=== PATIENT | female | born 1960 | race Caucasian/White ===

== ENCOUNTER → 2017-11-29 02:43 | Outpatient (CLI) | payer OTHER, SELFPAY ==
[2017-11-29 11:46] LABS: ALT 29 U/L (12-78); AST 21 U/L (15-37); Albumin 3.6 g/dL (3.4-5.0); Alkaline Phosphatase 107 U/L (46-116); Anion Gap 9.8 mmol/L (3-11); BUN 15 mg/dL (7-18); Bilirubin, Total 0.3 mg/dL (0.2-1.0); CO2 27.2 mmol/L (21.0-32.0); CREATININE 1.16 mg/dL (0.55-1.02); Chloride 100 mmol/L (98-107); Cholesterol 243 mg/dL (50-200); Estimated GFR 47.82 (mL/min/1.73m2); Glucose 95 mg/dL (70-100); HDL Cholesterol 63 mg/dL (40-60); LDL CHOLESTEROL 150 mg/dL (<100); Potassium 4.5 mmol/L (3.5-5.1); Sodium 137 mmol/L (136-145); Total Protein 6.8 g/dL (6.4-8.2); Triglyceride 133 mg/dL (30-150)
[2017-11-29 11:51] LABS: Calcium 9.1 mg/dL (8.5-10.1)
== END ==
DX: E78.2 Mixed hyperlipidemia (principal); F32.9 Major depressive disorder, single episode, unspecified; I10 Essential (primary) hypertension; K21.9 Gastro-esophageal reflux disease without esophagitis; G43.909 Migraine, unspecified, not intractable, without status migrainosus; R11.2 Nausea with vomiting, unspecified
CPT/HCPCS: 36415; 80053; 80061; 83721

== ENCOUNTER 2018-02-02 00:18 | Outpatient (CLI) | payer OTHER, SELFPAY ==
--- NOTE | 2018-02-02 07:50 | DI.MAMMO_ITS ---
SYMPTOM/DIAGNOSIS: SCREENING, Z12.31 MAMMOGRAMS: Mammograms were interpreted according to the usual protocol including computer analysis with CAD system, tomosynthesis and C view imaging. Comparison is made with prior examinations. Breast density, A. No masses or microcalcifications are seen. There is nothing to suggest malignancy. IMPRESSION: Negative mammogram. Routine screening is recommended. Category 1A. MQSA ASSESSMENT OF FINDINGS: Negative. Category 1. Patient will receive a letter notifying them of these results. BI-RAD category A. The breasts are almost entirely fatty.
== END 2018-02-02 00:38 ==
DX: Z12.31 Encounter for screening mammogram for malignant neoplasm of breast (principal)
CPT/HCPCS: 77063; 77067

== ENCOUNTER 2018-03-24 09:49 | Outpatient (CLI) | payer OTHER, SELFPAY ==
[2018-03-24 10:53] LABS: Bilirubin Negative (Negative); Blood Moderate (Negative); Clarity Clear; Glucose Negative (Negative); Ketones Negative (Negative); Leukocyte Esterase Small (Negative); Nitrite Negative (Negative); Specific Gravity 1.015 (1.005-1.025); Urobilinogen 0.2 EU/dL (Up TO 0.2)
[2018-03-24 11:26] LABS: Bacteria Few HPF (Negative); C & S Indicated? Yes; Casts Negative LPF (Negative); Crystals Negative HPF (Negative); Epithelial Cells Rare HPF (Negative); Mucus Negative (Negative); Other Cells Negative (Negative)
== END 2018-03-24 10:09 ==
DX: R31.9 Hematuria, unspecified (principal)
CPT/HCPCS: 87077; 81003; 81015; 87086; 87186

== ENCOUNTER 2018-04-13 01:17 | Outpatient (CLI) | payer OTHER, SELFPAY ==
--- NOTE | 2018-04-13 10:31 | DI.US_ITS ---
SYMPTOMS/DIAGNOSIS: MIXED STRESS AND URGE URINARY INCONTINENCE, N39.46 RENAL ULTRASOUND: The right kidney measures 11.2 x 5.2 x 5.8 cm. Echogenic foci with slight shadowing are noted in the mid pole of the right kidney. There is no evidence of obstruction. The left kidney measures 10.1 x 5.4 x 6.1 cm and appears unremarkable with no evidence of a cyst, stone, mass or hydronephrosis. Bilateral ureteral jets were visualized. The prevoid bladder contains 366 cc's. The postvoid bladder 5.5 cc's. The bladder wall thickness is 4.3 mm with no evidence of a localized bladder wall mass. SUMMARY: There is evidence of nonobstructing right nephrolithiasis. There is slight bladder wall thickening. The study is otherwise unremarkable.
== END 2018-04-13 01:37 ==
PROVIDERS: Visit Provider Urology
DX: N39.46 Mixed incontinence (principal); N20.0 Calculus of kidney; N32.9 Bladder disorder, unspecified
CPT/HCPCS: 76770

== ENCOUNTER 2018-05-10 02:00 | Outpatient (CLI) | payer OTHER, SELFPAY ==
[2018-05-10 07:58] LABS: HCT 39.6 % (36.0-46.0); HGB 13.1 g/dL (12.0-15.5); Mean Corp. HGB Concentration 33.1 g/dL (32.0-36.0); Mean Corpuscular Volume 87.8 fL (80-95); Mean Platelet Volume 9.8 fL (8.0-11.0); Platelet Count 274 x1000/uL (130-400); RBC 4.51 m/cumm (4.00-5.20); White Blood Cell Count 5.66 k/cumm (4.4-10.8)
[2018-05-10 09:51] LABS: Ferritin 42 ng/mL (8-388); TSH (W/Ref FT4) 3.98 uIU/mL (0.358-3.74)
[2018-05-10 10:10] LABS: FREE T4 0.97 ng/dL (0.76-1.46)
== END 2018-05-10 02:20 ==
DX: F32.9 Major depressive disorder, single episode, unspecified (principal); R53.83 Other fatigue; R63.8 Other symptoms and signs concerning food and fluid intake
CPT/HCPCS: 36415; 85027; 82728; 84439; 84443

== ENCOUNTER 2018-12-27 14:15 | Outpatient (REF) | payer OTHER, SELFPAY ==
--- NOTE | 2018-12-27 11:00 | PAPFT_PTH ---
PATIENT: Abbey Saldana LOC: [facility] U#:[id number] AGE/SX: 58/F ROOM: RE12/27/[address]: Fay Mendes APRN : 1960 BED: DIS: 12/27/2018 SPEC #: [id number] RECD: 12/28/18 12:49 STATUS: SHANELL SIMON #: [id number] BRIANNA: 12/27/18 11:[address]: Fay Mendes DEPT: [facility] Cytology RECD BY: Suyapa Ortiz Tissues: 1 - CX/ENDOCX FOR PAP SMEARS Procedures: PAP THIN PREP/UVM Screening HPV DNA PROBE Comments: [id number]
== END 2018-12-27 14:35 ==
LOC: LBN 14:15
DX: Z12.4 Encounter for screening for malignant neoplasm of cervix (principal); Z11.51 Encounter for screening for human papillomavirus (HPV)
CPT/HCPCS: 88142; 87624

== ENCOUNTER 2019-01-04 06:32 | Outpatient (CLI) | payer OTHER, SELFPAY ==
[2019-01-04 09:28] LABS: ALT 29 U/L (14-59); AST 15 U/L (15-37); Albumin 3.9 g/dL (3.4-5.0); Alkaline Phosphatase 114 U/L (46-116); Anion Gap 8.1 mmol/L (3-11); BUN 13 mg/dL (7-18); Bilirubin, Total 0.4 mg/dL (0.2-1.0); CO2 27.9 mmol/L (21.0-32.0); CREATININE 1.01 mg/dL (0.55-1.02); Calcium 9.4 mg/dL (8.5-10.1); Chloride 102 mmol/L (98-107); Estimated GFR 55.91 (mL/min/1.73m2); Glucose 96 mg/dL (70-100); Potassium 4.7 mmol/L (3.5-5.1); Sodium 138 mmol/L (136-145); Total Protein 7.2 g/dL (6.4-8.2)
== END 2019-01-04 06:52 ==
DX: Z00.00 Encounter for general adult medical examination without abnormal findings (principal); I10 Essential (primary) hypertension; K21.9 Gastro-esophageal reflux disease without esophagitis
CPT/HCPCS: 36415; 80053

== ENCOUNTER 2019-12-14 00:44 | Outpatient (CLI) | payer OTHER, SELFPAY ==
--- NOTE | 2019-12-14 06:00 | DI.MAMMO_ITS ---
EXAM: MAMMO SCREENING CLINICAL HISTORY: screening,z12.39 TECHNIQUE: Mammograms were interpreted according to the usual protocol including computer analysis w [employer] CAD system, tomosynthesis and C-view imaging. COMPARISON: 2009 through 2017 FINDINGS: The breasts are composed of scattered fibroglandular densities, Breast Density category B. No suspicious masses or suspicious microcalcifications are seen. No skin thickening or abnormal axillary lymph nodes are seen. There has been no significant change from prior exams. IMPRESSION: BI-RADS Category 1, Negative mammogram Yearly screening mammography is recommended. Breast Density Category B, scattered fibroglandular densities. A negative radiographic report should not delay biopsy if a dominant or clinically suspicious mass is present. Up to ten percent of cancers are not identified on mammography. A negative report may reinforce clinical impression. Adenosis and dense breasts may obscure an underlying neoplasm. False positive reports average 6 to 10%. Patient will receive a letter notifying them of these results.
== END 2019-12-14 01:04 ==
DX: Z12.31 Encounter for screening mammogram for malignant neoplasm of breast (principal); R92.2 Inconclusive mammogram
CPT/HCPCS: 77063; 77067

== ENCOUNTER 2020-02-21 04:05 | Outpatient (CLI) | payer OTHER, SELFPAY ==
[2020-02-21 08:41] LABS: ALT 29 U/L (14-59); AST 21 U/L (15-37); Albumin 3.6 g/dL (3.4-5.0); Alkaline Phosphatase 108 U/L (46-116); Anion Gap 7.8 mmol/L (3-11); BUN 15 mg/dL (7-18); Bilirubin, Total 0.3 mg/dL (0.2-1.0); CO2 26.2 mmol/L (21.0-32.0); CREATININE 1.03 mg/dL (0.55-1.02); Calcium 8.9 mg/dL (8.5-10.1); Chloride 103 mmol/L (98-107); Estimated GFR 54.48 (mL/min/1.73m2); Glucose 89 mg/dL (74-106); Potassium 4.6 mmol/L (3.5-5.1); Sodium 137 mmol/L (136-145); TSH (W/Ref FT4) 3.49 uIU/mL (0.36-3.74); Total Protein 6.8 g/dL (6.4-8.2)
== END 2020-02-21 04:25 ==
DX: E03.9 Hypothyroidism, unspecified (principal); I10 Essential (primary) hypertension; R53.83 Other fatigue
CPT/HCPCS: 36415; 80053; 84443

== ENCOUNTER 2020-06-25 13:39 | Emergency (ER) | payer OTHER, SELFPAY ==
--- NOTE | 2020-06-25 13:47 | W.ED.GENAD ---
Discharge Plan Disposition Patient Disposition: HOME Condition: Stable Discharge Details Clinical Impression: Effusion of left knee, Arthritis of knee, left, Grant's cyst of knee Primary Care Provider: Fay Mendes ED Provider: Karen Mitchell Home Meds and New Rx's Prescriptions: Continued citalopram [Celexa] 40 mg tablet 40 mg PO DAILY Qty: 90 RF: 3 cyclobenzaprine 10 mg tablet 10 mg PO HS Qty: 90 RF: 3 eletriptan [Relpax] 40 mg tablet 40 mg PO BID PRN (Reason: migraine headache) Qty: 30 RF: 1 lisinopril 5 mg tablet 5 mg PO DAILY Qty: 90 RF: 4 lorazepam [Ativan] 0.5 mg tablet 0.5 mg PO HS PRN Qty: 30 RF: 0 pantoprazole 40 mg tablet,delayed release (DR/EC) 40 mg PO DAILY Qty: 90 RF: 4 verapamil 120 mg tablet 120 mg PO BID Qty: 180 RF: 4 fluocinonide-emollient 0.05 % cream 1 applic topical BID Qty: 60 RF: 2 aspirin [Aspirin Low-Strength] 81 MG tablet,chewable 81 mg PO DAILY RF: 0 cholecalciferol (vitamin D3) 1,000 UNIT tablet 2,000 unit PO DAILY RF: 0 Tumeric 1 cap PO DAILY RF: 0 Discharge Instructions Instructions: Knee Sprain (ED), Grant Cyst (ED), Swollen Knee Joint (ED), Arthritis (ED) Additional Instructions: Your pain and swelling may be due to a combination of factors including a possible knee sprain which led to fluid around the knee. An underlying mild arthritis and a Grant's cyst may also be contributing to the pain. It is best to rest, ice, elevate your left knee as much as possible. Alternate Tylenol and Motrin as needed directed for pain. You should take 600 mg of ibuprofen every 6 hours for the next few days to help with swelling and pain. Follow-up with your primary care doctor in 1 week and for referral to orthopedics if your symptoms do not improve or worsen. Return to the emergency department with any worsening or new concerning symptoms. Discharge Data Discharge Date/Time-TO BE ENTERED AT DEPARTURE: 06/25/20 16:37 Discharge Physician: Karen Mitchell Medical Decision Making 59-year-old female with a history of hypertension, GERD, obesity presents with left knee and leg pain and swelling for the past few days after turning quickly at work. She appears nontoxic and afebrile. Her left knee and leg are edematous. She has some pain with range of motion but no ligamentous laxity. No evidence of cellulitis. Neurovascular intact. Differential diagnosis includes sprain versus strain, Grant's cyst, arthritis, versus DVT. Will refer for left knee x-ray and ultrasound and give a dose of ibuprofen. Left knee x-ray noted mild degenerative changes but no acute fracture. Doppler ultrasound noted a 3 x 2 x 1 cm Grant's cyst in addition to a knee joint effusion but no DVT. An Rio wrap was placed to her left knee. Case discussed with Dr. Mccloud -no acute recommendations for Grant's cyst. Patient advised on importance of RICE. Advised to follow up with the primary care doctor for re-evaluation. Usual and customary return precautions given prior to discharge. Medical Records Medical records reviewed: Yes I reviewed the patient's medical records. Imaging Data Radiologic Study: Radiologist's impression: XR KNEE LT 4V AP,LAT,ROSETTE,PAT CLINICAL HISTORY: L knee twisting, r/o effusion, arthritis TECHNIQUE: COMPARISON: CR RIGHT KNEE 3 VIEWS from 11/09/2013 FINDINGS: Four views were obtained. There appear to be mild degenerative changes of the joints of knee. There is no evidence of acute fracture or dislocation. US LOWER EXTREMITY VENOUS LT CLINICAL HISTORY: L leg pain and swelling, r/o dvt. TECHNIQUE: Ultrasound performed using standard protocol. COMPARISON: US US renal from 04/13/2018 FINDINGS: Duplex venous ultrasound was performed according to the usual protocol. The deep veins are freely compressible throughout and there is normal flow augmentation with manual calf compression. 2D and Doppler evaluation are unremarkable. Note is made of a 37 x 25 x 10 millimeter in diameter Grant's cyst in left popliteal fossa. Note is also made of a knee joint effusion. IMPRESSION: No evidence of deep venous thrombosis of the left lower extremity. HPI General Mode of arrival: ambulatory. Date/Time Provider Initiated Documentation: 06/25/20 13:45. Limitations to Documentation: no limitations. Information obtained by: patient. HPI Narrative: Patient is a 59-year-old female with a history of obesity, depression, GERD, osteoarthritis who presents to the ED with a complaint of left leg pain and swelling for the past few days. Patient states she was standing at work when she turned around quickly and felt a tweak and pain in her left posterior knee. She states since then she has had left posterior knee pain and left calf pain. She states the pain is worse with bending her left knee and weightbearing. She last took ibuprofen at 9 AM this morning. She denies any fever, chest pain, shortness of breath, hip pain, ankle pain, pain, recent travel, recent surgeries, estrogen therapy and she is not a smoker. Related Data Home Medications Medication Instructions Recorded Confirmed aspirin [Aspirin Low-Strength] 81 mg PO DAILY tab-cap 10/07/12 06/25/20 cholecalciferol (vitamin D3) 2,000 unit PO DAILY 10/07/12 06/25/20 Tumeric 1 cap PO DAILY 11/12/16 06/25/20 citalopram 40 mg tablet 40 mg PO DAILY #90 tab-cap 02/12/20 06/25/20 cyclobenzaprine 10 mg tablet 10 mg PO HS #90 tab-cap 02/12/20 06/25/20 eletriptan 40 mg tablet 40 mg PO BID PRN #30 tab 02/12/20 06/25/20 fluocinonide-emollient 0.05 % 1 applic TOPICAL BID #60 g 02/12/20 06/25/20 topical cream lisinopril 5 mg tablet 5 mg PO DAILY #90 tab-cap 02/12/20 06/25/20 lorazepam 0.5 mg tablet 0.5 mg PO HS PRN #30 tab-cap 02/12/20 06/25/20 pantoprazole 40 mg tablet,delayed 40 mg PO DAILY #90 tab-cap 02/12/20 06/25/20 release verapamil 120 mg tablet 120 mg PO BID #180 tab-cap 02/12/20 06/25/20 Previous Rx's Medication Instructions Recorded citalopram 40 mg tablet 40 mg PO DAILY #90 tab-cap 02/12/20 cyclobenzaprine 10 mg tablet 10 mg PO HS #90 tab-cap 02/12/20 eletriptan 40 mg tablet 40 mg PO BID PRN #30 tab 02/12/20 fluocinonide-emollient 0.05 % 1 applic TOPICAL BID #60 g 02/12/20 topical cream lisinopril 5 mg tablet 5 mg PO DAILY #90 tab-cap 02/12/20 lorazepam 0.5 mg tablet 0.5 mg PO HS PRN #30 tab-cap 02/12/20 pantoprazole 40 mg tablet,delayed 40 mg PO DAILY #90 tab-cap 02/12/20 release verapamil 120 mg tablet 120 mg PO BID #180 tab-cap 02/12/20 Allergies Allergy/AdvReac Type Severity Reaction Status Date / Time hydrocodone AdvReac Severe GI UPSET Verified 06/25/20 13:52 hydromorphone HCl AdvReac Severe GI UPSET Verified 06/25/20 13:52 [From Dilaudid] erythromycin base AdvReac Intermediate GI UPSET Verified 06/25/20 13:52 hydroxychloroquine AdvReac Intermediate Verified 06/25/20 13:52 [From Plaquenil] morphine AdvReac Mild N/V Verified 06/25/20 13:52 Review of Systems All systems reviewed & are unremarkable except as noted in HPI and below Constitutional Constitutional: Reports as per HPI, Denies chills and Denies fever(s) Eyes Eyes: Denies blurry vision ENT Ears, Nose, Mouth, and Throat: Denies dizziness, Denies sore throat and Denies throat swelling Cardiovascular Cardiovascular: Denies chest pain and Denies dyspnea Respiratory Respiratory: Denies cough and Denies dyspnea Gastrointestinal Gastrointestinal: Denies abdominal pain, Denies diarrhea and Denies vomiting Genitourinary Genitourinary: Denies hematuria and Denies dysuria Musculoskeletal Musculoskeletal: Denies back pain, Denies numbness and Reports other (left leg pain) Integumentary/Breasts Skin/Breast: Denies lesions and Denies rash Neurologic Neurologic: Denies dizziness, Denies localized weakness and Denies numbness Allergic/Immunologic Allergic/Immunologic: Denies throat swelling [facility] Medical History (Updated 06/25/20 @ 16:15 by Karen Mitchell DO) Depressive disorder Diverticulosis of intestine without bleeding (03/03/17) 02/19/17 Colonoscopy mild-mod guevara diverticulosis Encounter for annual physical exam Essential hypertension Fatigue Foot pain, right Generalized osteoarthrosis (06/12/11) 07/04 right TKR GERD (gastroesophageal reflux disease) (04/06/14) Granuloma annulare Grief Increased body mass index (BMI) (11/29/17) Joint pain (06/12/11) [address] 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 Migraine Rotator cuff syndrome (05/02/10) 04/04 (Angelique) surgery left shoulder Urinary incontinence, mixed [facility]04/06/14[facility] [place] [place] and collagen x 2 Varicose veins of lower extremity 05/06 left superficial phlebitis Surgical History Colonoscopy - MAC (02/19/17) Replacement of total knee joint (07/01/10) RIGHT KNEE Rotator Cuff Repair (04/21/10) ROTATOR CUFF AND BICEP TEAR Family History Mother Diabetes Essential hypertension Hyperlipidemia Emphysema lung Father Essential hypertension Heart disease Neoplasm PROSTATE Sister Alcohol abuse RECOVERING Brother Essential hypertension Hyperlipidemia Grandfather Depression Neoplasm BONE CA Grandfather COPD (chronic obstructive pulmonary disease) Emphysema lung Asthma Grandmother Diabetes Depression Heart disease Grandmother Neoplasm STOMACH Son Essential hypertension Hyperlipidemia Asthma Daughter Essential hypertension Hyperlipidemia Family History Lupus Scleredema Raynauds disease Social History Smoking/Tobacco Use Status: Never Smoking risk assessment performed?: Yes Alcohol Intake: never Drug use: Never Substance use type: does not use Do you feel safe at home: Yes Do you feel safe in your relationship?: Yes Exam Const General: cooperative, healthy appearing and no acute distress HENMT Head: normal to inspection Mouth: oral mucosae normal Eyes General: appearance normal, both eyes and all related structures Neck Neck: normal visual inspection Resp Effort & Inspection: normal respiratory effort and able to speak in complete sentences Cardio Rate: regular rate Skin General skin exam: no rashes or lesions noted Neuro General: patient alert, patient awake and patient oriented x3 Motor: muscle tone normal throughout Extrem Other: Pain in left knee with full flexion. Tenderness palpation to left posterior knee. There is nonpitting edema to the left lower leg extending from the knee down. She has bulging varicose veins noted to left medial proximal leg. Left DP/PT pulses intact. Left hip normal to inspection. Left ankle and foot normal to inspection. No left calf tenderness. No ligamentous laxity. Negative anterior posterior drawer test. No pain with valgus or varus stress. Psych Appearance: grossly normal Affect: normal affect
[2020-06-25 13:48] VITALS: BP 184/94; PULSE 97; RESP 16; TEMP 36.1; O2SAT 100
--- NOTE | 2020-06-25 14:00 | DI.RAD_ITS ---
EXAM: XR KNEE LT 4V AP,LAT,ROSETTE,PAT CLINICAL HISTORY: L knee twisting, r/o effusion, arthritis TECHNIQUE: COMPARISON: CR RIGHT KNEE 3 VIEWS from 11/09/2013 FINDINGS: Four views were obtained. There appear to be mild degenerative changes of the joints of knee. There is no evidence of acute fracture or dislocation. IMPRESSION: RADIATION DOSE DELIVERED: Total DLP
--- NOTE | 2020-06-25 14:00 | DI.US_ITS ---
EXAM: US LOWER EXTREMITY VENOUS LT CLINICAL HISTORY: L leg pain and swelling, r/o dvt. TECHNIQUE: Ultrasound performed using standard protocol. COMPARISON: US US renal from 04/13/2018 FINDINGS: Duplex venous ultrasound was performed according to the usual protocol. The deep veins are freely com pressible throughout and there is normal flow augmentation with manual calf compression. 2D and Doppl er evaluation are unremarkable. Note is made of a 37 x 25 x 10 millimeter in diameter Grant's cyst in left popliteal fossa. Note is also made of a knee joint effusion. IMPRESSION: No evidence of deep venous thrombosis of the left lower extremity. DATA REPOSITORY:
[2020-06-25] MEDS: Ibuprofen 600 MG TAB PO (14:15)
[2020-06-25 16:24] VITALS: BP 127/75; PULSE 85; RESP 16; O2SAT 95
== END 2020-06-25 16:37 | disposition home or self-care (01) ==
PROVIDERS: Emergency Provider Physician Assistant
DX: M25.462 Effusion, left knee (principal); M71.22 Synovial cyst of popliteal space [Baker], left knee; M17.12 Unilateral primary osteoarthritis, left knee
CPT/HCPCS: 99284; 73564; 93971; 99285

== ENCOUNTER 2020-07-03 11:22 | Emergency (ER) | payer OTHER, SELFPAY ==
[2020-07-03 11:43] VITALS: BP 149/89; PULSE 83; RESP 16; TEMP 36.3; O2SAT 99
--- NOTE | 2020-07-03 11:55 | W.ED.GENAD ---
Discharge Plan Disposition Patient Disposition: HOME Condition: Stable Discharge Details Clinical Impression: Knee pain Primary Care Provider: Fay Mendes ED Provider: Antione Chen Home Meds and New Rx's Prescriptions: Continued citalopram [Celexa] 40 mg tablet 40 mg PO DAILY Qty: 90 RF: 3 cyclobenzaprine 10 mg tablet 10 mg PO HS Qty: 90 RF: 3 eletriptan [Relpax] 40 mg tablet 40 mg PO BID PRN (Reason: migraine headache) Qty: 30 RF: 1 lisinopril 5 mg tablet 5 mg PO DAILY Qty: 90 RF: 4 lorazepam [Ativan] 0.5 mg tablet 0.5 mg PO HS PRN Qty: 30 RF: 0 pantoprazole 40 mg tablet,delayed release (DR/EC) 40 mg PO DAILY Qty: 90 RF: 4 verapamil 120 mg tablet 120 mg PO BID Qty: 180 RF: 4 fluocinonide-emollient 0.05 % cream 1 applic topical BID Qty: 60 RF: 2 aspirin [Aspirin Low-Strength] 81 MG tablet,chewable 81 mg PO DAILY RF: 0 cholecalciferol (vitamin D3) 1,000 UNIT tablet 2,000 unit PO DAILY RF: 0 Tumeric 1 cap PO DAILY RF: 0 ibuprofen 800 mg Tablet 800 mg PO PRN PRNRF: 0 Discharge Instructions Instructions: Knee Pain (ED) Additional Instructions: Your Grant's cyst very well could have ruptured. As we discussed, no clear indication for emergent x-ray or ultrasound as you have been both within the last week. Rio wrap as tolerated. Rest, elevate, cool and/or warm compresses every 2 hours for 20 minutes. Gentle stretching as tolerated. [id number] Tylenol and/or Motrin as directed for discomfort. Please watch for new or worsening symptoms and return to the ER for any concerns. Lastly, please follow-up with your primary care provider as already scheduled on Wednesday. If symptoms are to persist an outpatient referral to orthopedics may be indicated Medical Decision Making 59-year-old female who was seen on 06-25 for left knee pain, diagnosed with arthritis, effusion, Grant's cyst, now presents with increasing left posterior knee discomfort after taking a step today and feeling a pop. Clinically she appears well, nontoxic. There was no twisting mechanism or fall. I do not believe that repeat x-ray is indicated. Negative Homans' sign, ultrasound revealed Grant's cyst but negative for DVT just 8 days ago. I do not see any indication to repeat ultrasound. No suspicion for acute DVT. Patient did very well may have had her Grant's cyst rupture. She has a follow-up with her primary care provider on Wednesday. We discussed my thought process and plan. Patient is comfortable not repeating x-ray or ultrasound at this time. She declines any assisted devices for ambulation. Will provide Rio wrap to her knee. Encouraged her resting, elevating, cool and/or warm compresses [id number] Tylenol and/or Motrin as directed for discomfort. She will return to the ER for new or worsening symptoms, otherwise follow-up with her primary care provider on Wednesday as already scheduled. We discussed that if she is not improving with conservative care then potential outpatient orthopedic referral may be indicated. Medical Records Medical records reviewed: Yes I reviewed the patient's medical records. HPI General Mode of arrival: ambulatory. Date/Time Provider Initiated Documentation: 07/03/20 11:43. Limitations to Documentation: no limitations. Information obtained by: patient. HPI Narrative: This is a 59-year-old female with past medical history of granuloma annulare, depression, hypertension, GERD, varicose veins of bilateral lower extremities, migraines, who was seen in the ER on 06-25-20 for left knee pain. X-ray and ultrasound obtained, patient diagnosed with knee effusion, arthritis, and a Grant's cyst. She states today just prior to arrival while walking on an indoor even flat surface at work felt a pop and felt 7 out of 10 pain to the back of her left knee. She denies any twisting or falling mechanism. Denies numbness, tingling, weakness. States at rest her pain is 0 out of 10, with ambulation it is moderate in nature. She is scheduled to be seen by her primary care provider on Wednesday. Related Data Home Medications Medication Instructions Recorded Confirmed aspirin [Aspirin Low-Strength] 81 mg PO DAILY tab-cap 10/07/12 07/03/20 cholecalciferol (vitamin D3) 2,000 unit PO DAILY 10/07/12 07/03/20 Tumeric 1 cap PO DAILY 11/12/16 07/03/20 citalopram 40 mg tablet 40 mg PO DAILY #90 tab-cap 02/12/20 07/03/20 cyclobenzaprine 10 mg tablet 10 mg PO HS #90 tab-cap 02/12/20 07/03/20 eletriptan 40 mg tablet 40 mg PO BID PRN #30 tab 02/12/20 07/03/20 fluocinonide-emollient 0.05 % 1 applic TOPICAL BID #60 g 02/12/20 07/03/20 topical cream lisinopril 5 mg tablet 5 mg PO DAILY #90 tab-cap 02/12/20 07/03/20 lorazepam 0.5 mg tablet 0.5 mg PO HS PRN #30 tab-cap 02/12/20 07/03/20 pantoprazole 40 mg tablet,delayed 40 mg PO DAILY #90 tab-cap 02/12/20 07/03/20 release verapamil 120 mg tablet 120 mg PO BID #180 tab-cap 02/12/20 07/03/20 ibuprofen 800 mg PO PRN PRN 07/03/20 07/03/20 Previous Rx's Medication Instructions Recorded citalopram 40 mg tablet 40 mg PO DAILY #90 tab-cap 02/12/20 cyclobenzaprine 10 mg tablet 10 mg PO HS #90 tab-cap 02/12/20 eletriptan 40 mg tablet 40 mg PO BID PRN #30 tab 02/12/20 fluocinonide-emollient 0.05 % 1 applic TOPICAL BID #60 g 02/12/20 topical cream lisinopril 5 mg tablet 5 mg PO DAILY #90 tab-cap 02/12/20 lorazepam 0.5 mg tablet 0.5 mg PO HS PRN #30 tab-cap 02/12/20 pantoprazole 40 mg tablet,delayed 40 mg PO DAILY #90 tab-cap 02/12/20 release verapamil 120 mg tablet 120 mg PO BID #180 tab-cap 02/12/20 Allergies Allergy/AdvReac Type Severity Reaction Status Date / Time hydrocodone AdvReac Severe GI UPSET Verified 07/03/20 11:47 hydromorphone HCl AdvReac Severe GI UPSET Verified 07/03/20 11:47 [From Dilaudid] erythromycin base AdvReac Intermediate GI UPSET Verified 07/03/20 11:47 hydroxychloroquine AdvReac Intermediate Verified 07/03/20 11:47 [From Plaquenil] morphine AdvReac Mild N/V Verified 07/03/20 11:47 General Stated Complaint: Orthopedic JIMMIE: 4 Review of Systems Constitutional Constitutional: Denies fever(s) and Denies weakness Cardiovascular Cardiovascular: Denies chest pain and Denies dyspnea Respiratory Respiratory: Denies dyspnea Musculoskeletal Musculoskeletal: Reports arthralgias, Denies numbness, Denies stiffness and Denies tingling Integumentary/Breasts Skin/Breast: Denies erythema Neurologic Neurologic: Denies numbness, Denies tingling and Denies weakness [facility] Medical History Depressive disorder Diverticulosis of intestine without bleeding (03/03/17) 02/19/17 Colonoscopy mild-mod guevara diverticulosis Encounter for annual physical exam Essential hypertension Fatigue Foot pain, right Generalized osteoarthrosis (06/12/11) 07/04 right TKR GERD (gastroesophageal reflux disease) (04/06/14) Granuloma annulare Grief Increased body mass index (BMI) (11/29/17) Joint pain (06/12/11) [address] 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 Migraine Rotator cuff syndrome (05/02/10) 04/04 (Angelique) surgery left shoulder Urinary incontinence, mixed (04/06/14) [facility] urodynamics and collagen x 2 Varicose veins of lower extremity 05/06 left superficial phlebitis Surgical History Colonoscopy - MAC (02/19/17) Replacement of total knee joint (07/01/10) RIGHT KNEE Rotator Cuff Repair (04/21/10) ROTATOR CUFF AND BICEP TEAR Family History Mother Diabetes Essential hypertension Hyperlipidemia Emphysema lung Father Essential hypertension Heart disease Neoplasm PROSTATE Sister Alcohol abuse RECOVERING Brother Essential hypertension Hyperlipidemia Grandfather Depression Neoplasm BONE CA Grandfather COPD (chronic obstructive pulmonary disease) Emphysema lung Asthma Grandmother Diabetes Depression Heart disease Grandmother Neoplasm STOMACH Son Essential hypertension Hyperlipidemia Asthma Daughter Essential hypertension Hyperlipidemia Family History Lupus Scleredema Raynauds disease Social History Smoking/Tobacco Use Status: Never Smoking risk assessment performed?: Yes Alcohol Intake: never Drug use: Never Substance use type: does not use Do you feel safe at home: Yes Do you feel safe in your relationship?: Yes Exam Const General: cooperative, healthy appearing, comfortable and no acute distress Orientation: alert and awake [facility] Head: normal to inspection, normocephalic and atraumatic Eyes General: appearance normal, both eyes and all related structures Conjunctivae: conjunctivae normal Sclera: sclerae normal Neck Neck: normal visual inspection, trachea midline and supple Resp Effort & Inspection: normal respiratory effort and able to speak in complete sentences Cardio Rate: regular rate Rhythm: regular rhythm Skin General skin exam: no rashes or lesions noted Neuro General: patient alert, patient awake, moves all extremities and no focal motor deficits Cognition: normal cognition Speech: speech normal Gait: antalgic Motor: muscle tone normal throughout Sensory Exam: no sensory deficits noted Extrem Other: Left knee with full range of motion. No obvious swelling, erythema, ecchymosis, warmth. There is diffuse mild posterior discomfort. Neuro, vascular, tendon intact. Patient has varicose veins present throughout her lower extremity as well as skin changes consistent with granuloma annulare. No deformity or signs of septic joint. No signs of cellulitis. Negative Homans' sign. Knee is stable, no discomfort with varus or valgus stress. Anterior drawer test unremarkable Psych Appearance: grossly normal Mental Status: mental status grossly normal Course Vital Signs Vital signs: Vital Signs Temperature 36.3 C L 07/03/20 11:43 Pulse 83 07/03/20 11:43 Respiratory Rate 16 07/03/20 11:43 Blood Pressure 149/89 H 07/03/20 11:43 Pulse Oximetry 99 07/03/20 11:43 Temperature 36.3 C L 07/03/20 11:43 Temperature Source Tympanic 07/03/20 11:43 Pulse 83 07/03/20 11:43 Respiratory Rate 16 07/03/20 11:43 Blood Pressure 149/89 H 07/03/20 11:43 Pulse Oximetry 99 07/03/20 11:43 Oxygen Delivery Method Room Air 07/03/20 11:43 Oxygen Flow Rate 0 07/03/20 11:43 Pain Level 7 07/03/20 11:43
== END 2020-07-03 13:29 | disposition home or self-care (01) ==
PROVIDERS: Emergency Provider Physician Assistant
DX: M25.562 Pain in left knee (principal)
CPT/HCPCS: 99282; 99283

== ENCOUNTER 2020-12-16 01:40 | Outpatient (CLI) | payer OTHER, SELFPAY ==
--- NOTE | 2020-12-16 07:00 | DI.MAMMO_ITS ---
Exam(s) MAMMO SCREENING EXAM: MAMMO SCREENING CLINICAL HISTORY: screening, Z12.39. TECHNIQUE: Bilateral full field digital CC and MLO mammographic images were obtained with 3D tomosyn thesis and utilizing computer aided detection (CAD). COMPARISON: Prior mammograms dating back to 2011, the most recent being November 2019. FINDINGS: Asymmetric density in the retroareolar region of the left breast exhibits a CAD designation but is un changed from prior mammograms, identical in appearance to the mammogram of January 2017.. There are no new spiculated masses nor malignant appearing microcalcification groups. There is no significant architectural distortion nor skin thickening-retraction. IMPRESSION: Benign findings. No radiographic evidence of malignancy. BI-RADS Category 2 - Benign Findings Breast Density - Category B - Scattered areas of fibroglandular density Breast density Category C or D implies that the patient has dense breast tissue. Dense breast tissue can make it harder to find cancer on a mammogram. Dense breast tissue is also associated with an incr eased risk of breast cancer. This information about the result of the mammogram report was provided to the patient to raise their awareness. Use this report when you speak with the patient about their risks for breast cancer, which includes their family history. At that time, you may recommend additional screening tests (Ultrasoun d or MRI) as these tests may add significant information. A negative radiographic report should not delay biopsy if a dominant or clinically suspicious mass is present. Up to ten percent of cancers are not identified on mammography. A negative report may reinforce clinical impression. Adenosis and dense breasts may obscure an underlying neoplasm. False positive reports average 6 to 10%. Patient will receive a letter notifying them of these results.
== END 2020-12-16 02:00 ==
DX: Z12.31 Encounter for screening mammogram for malignant neoplasm of breast (principal)
CPT/HCPCS: 77063; 77067

== ENCOUNTER 2021-02-13 12:28 | Outpatient (REF) | payer OTHER, SELFPAY ==
--- NOTE | 2021-02-13 09:30 | PAPFT_PTH ---
PATIENT: Abbey Saldana LOC: [facility] U#:[id number] AGE/SX: 60/F ROOM: RE02/13/[address]: Fay Mendes APRN : 1960 BED: DIS: 02/13/2021 SPEC #: [id number] RECD: 02/13/21 12:58 STATUS: SHANELL REElissa #: [id number] BRIANNA: 02/13/21 09:[address]: Deandra Cedeño DEPT: [facility] Cytology RECD BY: Suyapa Ortiz ENTERED: 02/13/21 13:02 SP TYPE: PAPFT OTHR DR: Fay Mendes APRN Tissues: 1 - CX/ENDOCX FOR PAP SMEARS Procedures: PAP THIN PREP/UVM Screening HPV DNA PROBE Comments: [id number]
== END 2021-02-13 12:29 | disposition home or self-care (01) ==
LOC: LBN 12:28
DX: Z12.4 Encounter for screening for malignant neoplasm of cervix (principal); Z11.51 Encounter for screening for human papillomavirus (HPV)
CPT/HCPCS: 88142; 87624

== ENCOUNTER 2021-02-26 03:31 | Outpatient (CLI) | payer OTHER, SELFPAY ==
[2021-02-26 08:32] LABS: ALT 28 U/L (14-59); AST 20 U/L (15-37); Albumin 3.8 g/dL (3.4-5.0); Alkaline Phosphatase 101 U/L (46-116); Anion Gap 10.7 mmol/L (3-11); BUN 15 mg/dL (7-18); Bilirubin, Total 0.4 mg/dL (0.2-1.0); CO2 27.3 mmol/L (21.0-32.0); Calcium 9.3 mg/dL (8.5-10.1); Calculated LDL 175 mg/dL (<100); Chloride 101 mmol/L (98-107); Cholesterol 260 mg/dL (<200); Estimated GFR 56.18 (mL/min/1.73m2); Glucose 96 mg/dL (74-106); HDL Cholesterol 60 mg/dL (40-60); Potassium 4.5 mmol/L (3.5-5.1); Sodium 139 mmol/L (136-145); Triglyceride 126 mg/dL (<150)
== END 2021-02-26 03:32 | disposition home or self-care (01) ==
LOC: LBO 03:31
DX: E78.5 Hyperlipidemia, unspecified (principal); Z00.00 Encounter for general adult medical examination without abnormal findings
CPT/HCPCS: 36415; 80053; 80061

== ENCOUNTER → 2021-03-13 10:05 | Outpatient (CLI) | payer OTHER, SELFPAY ==
--- NOTE | 2021-03-13 09:57 | DI.RAD_ITS ---
Exam(s) XR PELVIS AP EXAM: XR PELVIS AP CLINICAL HISTORY: post fall pain, not improving - right post. pelvis,r10.2. TECHNIQUE: 2D digital imaging was performed. COMPARISON: CT RENAL COLIC WO CONTRAST from 01/11/2017 CT RENAL COLIC WO CONTRAST from 01/11/2017 CT UPPER ABD WITH CONTRAST (P) from 01/20/2017 FINDINGS: There is no evidence of pelvic nor hip fracture. There are minimal degenerative changes in the hips. Sacroiliac joints appear unremarkable. Some disc space narrowing in the lumbar spine noted. Phleb oliths are noted in both sides of the pelvis. There is a calcific density in the lower pelvis measuring 2.7 by 1.4 cm in the midline at the level s ymphysis pubis, not previously present. This may be a calculus in the urinary bladder. Other possib ility would be calcified uterine fibroid, not previously present. IMPRESSION: No new significant osseous findings. 27 x 14 millimeter midline calcification now evident, either related to uterine fibroid or bladder ca lculus. This was not evident on CT scan of the 01/11/2017 DATA REPOSITORY: RADIATION DOSE DELIVERED:
== END ==
DX: R10.2 Pelvic and perineal pain (principal); R93.5 Abnormal findings on diagnostic imaging of other abdominal regions, including retroperitoneum
CPT/HCPCS: 72170

== ENCOUNTER 2021-07-25 15:11 | Outpatient (REF) | payer OTHER, SELFPAY ==
[2021-07-25 15:08] LABS: Bilirubin Negative (Negative); Blood Large (Negative); Clarity Sl Cloudy (Clear); Glucose Negative (Negative); Ketones Negative (Negative); Leukocyte Esterase Large (Negative); Nitrite Negative (Negative); Urobilinogen 0.2 EU/dL (Up TO 0.2)
[2021-07-25 15:16] LABS: Bacteria Few HPF (Negative); C & S Indicated? Yes; Casts 0-2 Hyaline LPF (Negative); Crystals Negative HPF (Negative); Epithelial Cells Few HPF (Negative); Mucus Trace (Negative); RBC >50 HPF (0-2); WBC >50 HPF (0-5)
== END 2021-07-25 15:12 | disposition home or self-care (01) ==
LOC: LBN 15:11
PROVIDERS: Visit Provider Family Medicine
DX: N39.0 Urinary tract infection, site not specified (principal)
CPT/HCPCS: 81003; 81015; 87086

== ENCOUNTER 2021-08-02 16:26 | Outpatient (REF) | payer OTHER, SELFPAY | END 2021-08-02 16:27 | disposition home or self-care (01) | LOC: LBN 16:26 | PROVIDERS: Visit Provider Nurse Practitioner Family | DX: R30.0 Dysuria (principal) | CPT/HCPCS: 87086 ==

== ENCOUNTER 2021-08-19 04:26 | Outpatient (CLI) | payer OTHER, SELFPAY ==
--- NOTE | 2021-08-19 07:15 | DI.CT_ITS ---
Exam(s) CT ABDOMEN PELVIS WO/W EXAM: CT ABDOMEN PELVIS WO/W CLINICAL HISTORY: heamturia,f/u nodule kidney,f/u abnl us,n28.89,r31.9 TECHNIQUE: Imaging Protocol: Axial computed tomography images with coronal and sagittal reformatted images were created and reviewed CONTRAST MATERIAL: Intravenous: Omnipaque 350 Contrast volume:100 mL Oral: No COMPARISON: CT RENAL COLIC WO CONTRAST from 01/11/2017 CT UPPER ABD WITH CONTRAST (P) from 01/20/2017 CR XR PELVIS AP from 03/13/2021 US US ABDOMEN from 08/12/2021 FINDINGS: ABDOMEN: Lung Bases: Normal where visualized. Liver: Normal density. There is again seen a 2.8 x 1.6 cm hemangioma in the inferior aspect of the ri ght lobe of the liver. No suspicious hepatic masses are present. Portal, Superior Mesenteric, and Splenic Veins: Unremarkable. Gallbladder and Biliary Tract: No radiodense calculus or dilation. Pancreas: Normal density, no abnormal calcifications or inflammatory process. Spleen: Normal. Adrenals: No masses seen. Kidneys: Normal size, contour and axis. There is a 2 mm stone in the upper pole of the right kidney. No hydronephrosis. No masses seen. Abdominal Aorta: Abdominal portion non-dilated. Atherosclerosis. Bowel: No obstruction or bowel wall thickening. Appendix is unremarkable. There is diverticulosis thr oughout the colon, but no evidence of acute diverticulitis. Peritoneal Cavity: No ascites, collection or mesenteric inflammatory response. No free air. Lymph Nodes: Within normal limits. Bones: Within normal limits for the patient's age. Soft Tissues: Unremarkable. PELVIS: Bladder: Symmetric distention, no gross wall thickening. Reproductive Organs: Unremarkable as visualized. There is again seen a coarse calcification measuring 1.4 AP by 1.9 transverse by 3.1 craniocaudad interposed between the uterus and the urinary bladder. This was present on the x-ray of the pelvis from 03/13/2021. Lymph Nodes: Within normal limits. Bones: Within normal limits for the patient's age. IMPRESSION: 1. There is no evidence of a renal mass. The questionable area on the right kidney seen on the ultra sound dated 08/12/2021 represents normal renal cortical tissue. 2. Right nephrolithiasis. No hydronephrosis. RADIATION DOSE DELIVERED: 2,651.09mGy.cm Total DLP 2,651.09mGy.cm Total DLP DATA REPOSITORY: All CT scans at this facility are submitted to the National Radiology Data Registry (NRDR) Dose Index Registry (DIR) with the [employer] ([employer]). RADIATION OPTIMIZATION: All CT scans at this facility use at least one of these dose optimization te chniques: automated exposure control; mA and/or kV adjustment per patient size (includes targeted exa ms where dose is matched to clinical indication); or iterative reconstruction.
[2021-08-19 10:33] LABS: CREATININE 0.9 mg/dL (0.55-1.02)
[2021-08-19] MEDS: Omnipaque 350 MG/ML 100 ML BTL IJ (11:24)
== END 2021-08-19 04:46 ==
LOC: DI 04:26
DX: N28.89 Other specified disorders of kidney and ureter (principal); R31.9 Hematuria, unspecified; K76.89 Other specified diseases of liver; N20.0 Calculus of kidney
CPT/HCPCS: 74178; 82565; J3490

== ENCOUNTER 2021-11-11 17:11 | Emergency (ER) | payer MEDICAID, SELFPAY ==
--- NOTE | 2021-11-11 17:15 | RT.EKG_ITS ---
APPROVED REPORT Exam: Resting ECG Reason for Exam: fainting spells Patient Location: E HR:77 bpm ECG Measurements Heart Rate 77 AXIS MN 146 P 49 QRSd 87 QRS 26 QT 371 T 19 QTc 420 Conclusion Sinus rhythm...normal P axis, V-rate 60- 99 Probable left atrial enlargement...P >50mS, <-0.10mV V1. Sinus. Normal axis. No STEMI. I have reviewed and interpreted ECG and agree with software generated interpretation.
[2021-11-11 17:21] VITALS: BP 131/86; PULSE 81; RESP 18; TEMP 36.7; O2SAT 97
[2021-11-11] MEDS: Normal Saline 1,000 ML 1000 ML IV (17:53)
[2021-11-11 18:10] LABS: Abs Immature Grans 0.02 10^3/uL (0.0-0.06); Absolute Basophil Count 0.05 10^3/uL (0.0-0.2); Absolute Lymphocyte Count 1.97 10^3/uL (1.2-3.4); Absolute Monocyte Count 0.43 10^3/uL (0.1-0.8); Absolute Neutrophil Count 4.12 10^3/uL (1.2-6.7); Basophils % 0.7; Eosinophils % 1.5; HCT 39.2 % (36.0-46.0); HGB 12.5 g/dL (11.2-15.7); Immature Grans % 0.3; Lymphocytes % 29.4; MCHC 31.9 % (32.0-36.0); MCV 91 fL (80-95); MPV 10.6 fL (8.0-11.0); Monocytes % 6.4; Neutrophils % 61.7; Platelet Count 301 10^3/uL (130-400); RBC 4.31 10^6/uL (3.93-5.22); RDW 14.3 % (11.7-14.6); RDW-SD 47.6 fL; WBC 6.69 10^3/uL (4.4-10.8)
[2021-11-11 18:16] LABS: Bilirubin Negative (Negative); Blood Trace-intact (Negative); Clarity Clear (Clear); Glucose Negative (Negative); Ketones Negative (Negative); Leukocyte Esterase Negative (Negative); Nitrite Negative (Negative); Specific Gravity 1.015 (1.005-1.025); Urobilinogen 0.2 EU/dL (Up TO 0.2)
[2021-11-11 18:31] LABS: Bacteria Negative HPF (Negative); C & S Indicated? No; Crystals Negative HPF (Negative); Epithelial Cells Few HPF (Negative); Mucus Negative (Negative); RBC 0-2 HPF (0-2); WBC 0-2 HPF (0-5)
[2021-11-11 18:35] LABS: ALT 32 U/L (14-59); AST 26 U/L (15-37); Alkaline Phosphatase 123 U/L (46-116); Anion Gap 8.5 mmol/L (3-11); BUN 29 mg/dL (7-18); Bilirubin, Total 0.3 mg/dL (0.2-1.0); CO2 28.5 mmol/L (21.0-32.0); Calcium 9.3 mg/dL (8.5-10.1); Chloride 98 mmol/L (98-107); Glucose 90 mg/dL (74-106); Magnesium 2.2 mg/dL (1.8-2.4); Potassium 3.9 mmol/L (3.5-5.1); Sodium 135 mmol/L (136-145); TSH 3.21 uIU/mL (0.36-3.74); Total Protein 7.3 g/dL (6.4-8.2); Troponin I < 50 ng/L (<or=60)
[2021-11-11] MEDS: Ketorolac 15 MG/ML VIAL IVP (19:29)
--- NOTE | 2021-11-11 19:32 | W.ED.GENAD ---
Discharge Plan Disposition Patient Disposition: HOME Condition: Improving Discharge Details Clinical Impression: Syncope, Adverse drug effect Primary Care Provider: Fay Mendes ED Provider: Martinez Pisano Home Meds and New Rx's Prescriptions: Continued eletriptan [Relpax] 40 mg tablet 40 mg PO BID PRN (Reason: migraine headache) Qty: 30 1RF Rx Instructions: 1 TAB for migraine headache, may repeat x1 after 2 hours for a max. of twice in 24 hours. coenzyme Q10 [Co Q-10] 50 mg capsule 50 mg PO DAILY aspirin [Aspirin Low-Strength] 81 MG tablet,chewable 81 mg PO DAILY cholecalciferol (vitamin D3) 1,000 UNIT tablet 2,000 unit PO DAILY Tumeric 1 cap PO DAILY lorazepam [Ativan] 0.5 mg tablet 0.5 mg PO HS PRN Qty: 30 0RF Rx Instructions: 1 TAB QHS PRN atorvastatin 10 mg tablet 10 mg PO QPM Qty: 90 3RF citalopram [Celexa] 40 mg tablet 40 mg PO DAILY Qty: 90 3RF Rx Instructions: 40 MG DAILY lisinopril 5 mg tablet 5 mg PO DAILY Qty: 90 4RF Rx Instructions: 1 TAB DAILY verapamil 120 mg tablet 120 mg PO BID Qty: 180 4RF Rx Instructions: 1 TAB BID ibuprofen 800 mg Tablet 800 mg PO PRN PRN estradiol 0.01 % (0.1 mg/gram) cream 1 g vaginal DIRECTED Rx Instructions: 1 gm vaginally nightly for 7 nights, then 2x per week Discontinued magnesium citrate 100 mg capsule 100 mg PO DAILY Discharge Instructions Instructions: Syncope (ED) Additional Instructions: Please stop the magnesium supplement as discussed given that I feel that this is contributing to your symptoms. If you have any new or significant worsening of symptoms please return immediately to the emergency department for reassessment. Otherwise stay well-hydrated and get plenty of rest and with increasing activity as tolerated. It is recommended that you follow-up with your primary care provider in the next 1 to 2 weeks for reassessment and a referral has been put in Referrals: Fay Mendes, [employer] GRINDER OPERATOR [Primary Care Provider] - 1 week Discharge Data Discharge Date/Time-TO BE ENTERED AT DEPARTURE: 11/11/21 20:02 Medical Decision Making Patient presenting to the emergency department for chief complaint of syncope on Wednesday and near syncope this morning. This morning she does state a sensation of racing heart rate after the event. Patient reports that on Wednesday she started taking a different magnesium pill and approximately 20 to 30 minutes after taking the medication is when the event happened. She did not take the medication again until this morning which also seem to have the same effect without complete syncope. Patient is otherwise asymptomatic and states only mild headache which is typical and that she does have these often. Physical exam is unremarkable and normal cardiac and neuro exam. Plan to check EKG, and labs along with troponin. Vital signs are stable no hypoxia no hypotension no tachycardia. Will give patient fluids pending results. Please see physician interpretation for full interpretation of EKG but patient is in sinus rhythm with a rate of 77, no acute signs of STEMI are noted. Review of labs show a unremarkable CBC with no signs of anemia, CMP does show a slightly low sodium at 135, BUN at 29 and elevated alk phos of 123 otherwise nondiagnostic. TSH is within normal range, urine shows trace blood otherwise again nondiagnostic. Patient reassessed and states overall improvement of symptoms, no further palpitations or cardiac symptoms, no dizziness, but mild headache does remain. Will give patient small amount of Toradol and reassess. Patient stated improvement of symptoms and I do feel that she is stable for discharge given overall unremarkable labs. Will encourage patient to stay well-hydrated and to stop the oral magnesium that she was taking. Will place patient on Holter monitor on outpatient basis and have her follow-up with her primary care provider. Do not feel that delta troponin is needed at this time given that initial event happened on Wednesday with minor event this morning almost 12 hours prior to arrival. After discussion of diagnosis and plan of care patient has no further needs, questions, or concerns and states clear understanding to return to the emergency department for any worsening symptoms. This documentation was generated using [employer] system, please disregard any oddities of phrase or misspellings. HPI General Mode of arrival: ambulatory. Date/Time Provider Initiated Documentation: 11/11/21 17:39. Limitations to Documentation: no limitations. Information obtained by: patient and RN notes reviewed. History of Present Illness 61 year old F presents to the emergency department with the chief complaint of Syncope and near syncope, described as mild, with intensity rated at 1. Quality is described as aching, and is localized to the head. Patient reports no radiation. Patient started experiencing this day(s) (4) and it has been intermittent. No relieving factors improve symptom(s), Medication worsens symptoms (New magnesium supplement) . Patient notes headaches. Patient did receive the following treatments prior to arrival, none Related Data Home Medications Medication Instructions Recorded Confirmed aspirin 81 mg chewable tablet 81 mg PO DAILY 10/07/12 11/11/21 (Aspirin Low-Strength) cholecalciferol (vitamin D3) 25 2,000 unit PO DAILY 10/07/12 11/11/21 mcg (1,000 unit) tablet Tumeric 1 cap PO DAILY 11/12/16 11/11/21 ibuprofen 800 mg tablet 800 mg PO PRN PRN 07/03/20 11/11/21 lorazepam 0.5 mg tablet (Ativan) 0.5 mg PO HS PRN #30 tab-caps 01/17/21 11/11/21 eletriptan 40 mg tablet (Relpax) 40 mg PO BID PRN migraine headache 02/13/21 11/11/21 #30 tabs atorvastatin 10 mg tablet 10 mg PO QPM #90 tabs 06/17/21 11/11/21 citalopram 40 mg tablet (Celexa) 40 mg PO DAILY #90 tab-caps 06/17/21 11/11/21 lisinopril 5 mg tablet 5 mg PO DAILY #90 tab-caps 06/17/21 11/11/21 verapamil 120 mg tablet 120 mg PO BID #180 tab-caps 06/17/21 11/11/21 coenzyme Q10 50 mg capsule (Co 50 mg PO DAILY 07/25/21 11/11/21 Q-10) estradiol 0.01% (0.1 mg/gram) 1 g vaginal DIRECTED vaginal 11/11/21 11/11/21 vaginal cream atrophy Previous Rx's Medication Instructions Recorded lorazepam 0.5 mg tablet (Ativan) 0.5 mg PO HS PRN #30 tab-caps 01/17/21 eletriptan 40 mg tablet (Relpax) 40 mg PO BID PRN migraine headache 02/13/21 #30 tabs atorvastatin 10 mg tablet 10 mg PO QPM #90 tabs 06/17/21 citalopram 40 mg tablet (Celexa) 40 mg PO DAILY #90 tab-caps 06/17/21 lisinopril 5 mg tablet 5 mg PO DAILY #90 tab-caps 06/17/21 verapamil 120 mg tablet 120 mg PO BID #180 tab-caps 06/17/21 Allergies Allergy/AdvReac Type Severity Reaction Status Date / Time hydrocodone AdvReac Severe GI UPSET Verified 08/05/21 12:07 hydromorphone HCl AdvReac Severe GI UPSET Verified 08/05/21 12:07 [From Dilaudid] erythromycin base AdvReac Intermediate GI UPSET Verified 08/05/21 12:07 hydroxychloroquine AdvReac Intermediate Verified 08/05/21 12:07 [From Plaquenil] morphine AdvReac Mild N/V Verified 08/05/21 12:07 General Stated Complaint: Dizzy/Sync JIMMIE: 3 Review of Systems Constitutional Constitutional: Denies body ache(s), Denies chills, Denies fever(s), Denies frequent falls and Reports headache(s) Eyes Eyes: Denies change in vision and Denies loss of vision ENT Ears, Nose, Mouth, and Throat: Denies vertigo, Denies dizziness, Reports headache(s) and Denies neck pain Cardiovascular Cardiovascular: Denies chest pain, Reports syncope, Denies lightheadedness and Denies dyspnea Respiratory Respiratory: Denies cough and Denies dyspnea Gastrointestinal Gastrointestinal: Denies abdominal pain, Reports loose stools (Prior to the first event of syncope), Denies nausea and Denies vomiting Genitourinary Genitourinary: Denies dysuria Musculoskeletal Musculoskeletal: Denies muscle weakness, Denies neck pain and Denies numbness Integumentary/Breasts Skin/Breast: Denies rash Neurologic Neurologic: Reports as per HPI, Denies abnormal movements, Denies confusion, Denies vertigo, Denies dizziness, Reports syncope, Denies frequent falls, Reports headache(s), Denies lack of coordination, Denies localized weakness, Denies loss of vision, Denies memory loss, Denies numbness, Denies sensory deficit and Denies paresthesias Psychiatric Psychiatric: Denies confusion and Denies memory loss PFSH All Active Problems (Updated 11/11/21 @ 19:38 by Martinez Pisano NP) Syncope (Chronic) Adverse drug effect (Acute) Hematuria (Acute) Nodule of kidney (Acute) 07/2021 US - RIGHT - 2.6-2.6-4.2cm - CT abd & pel WO/W ordered +Hematuria Hyperlipidemia (Chronic) Granuloma annulare (Chronic) Depressive disorder (Chronic) Essential hypertension (Chronic) GERD (gastroesophageal reflux disease) (Chronic 04/06/14) Increased body mass index (BMI) (Chronic 11/29/17) Migraine (Chronic) Urinary incontinence, mixed (Chronic 04/06/14) [facility] [place], [place] 2005 urodynamics and collagen x 2 Arthritis of knee, left (Chronic) Minimal DJD Encounter for annual physical exam (Acute) Medical History Grant's cyst of knee 07/08/20 - Left , ? 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 Pelvic pain Right, posterior trauma 01/31/21 from fall Rotator cuff syndrome (05/02/10) 04/04 (Angelique) surgery left shoulder Varicose veins of lower extremity 05/06 left superficial phlebitis Surgical History Colonoscopy - MAC (02/19/17) Replacement of total knee joint (07/01/10) RIGHT KNEE Rotator Cuff Repair (04/21/10) ROTATOR CUFF AND BICEP TEAR Family History Mother Diabetes Essential hypertension Hyperlipidemia Emphysema lung Asthma Father , 90 Essential hypertension Heart disease Neoplasm PROSTATE Sister Alcohol abuse RECOVERING Brother Essential hypertension Hyperlipidemia Maternal Grandfather , 78 Depression Neoplasm BONE CA Paternal Grandfather , 76 COPD (chronic obstructive pulmonary disease) Emphysema lung Asthma Maternal Grandmother , 78 Diabetes Depression Heart disease Paternal Grandmother , 80 Neoplasm STOMACH Son , 35 Essential hypertension Hyperlipidemia Asthma Stroke ([place]) Daughter Essential hypertension Hyperlipidemia Family History Lupus Scleredema Raynauds disease Social History Smoking/Tobacco Use Status: Never Second Hand Exposure: No Smoking risk assessment performed?: Yes Alcohol Intake: current Alcohol Intake frequency: holidays/special occasions only Alcohol type: beer Drug use: Never Substance use type: does not use Household members: none Housing: house Communication Needs: None Do you need help understanding health information?: Rarely Pets and animals: Yes Pets and animals: dog(s) Sexually active: No Do you think of yourself as: straight/heterosexual What is your relationship status?: How often do you talk on the phone with friends or family?: three or more times per week How often do you get together with friends or relatives?: three or more times per week How often do you attend taoism or latter day services?: 4 or more times per year Do you belong to any clubs or organized social groups?: no Panel score (0-1 are the most socially isolated patients): 2 What type of physical activity do you participate in: none Frequency: does not exercise Mamie/Yazdanism: Orthodox Special mamie needs: No Seatbelt use: always Helmet use: Yes Helmet use: always Drive intox or ride w/intox drivers license examiner: No Do you feel safe at home: Yes Do you feel safe in your relationship?: Yes Exam Const General: cooperative, healthy appearing, no acute distress and well groomed Orientation: alert, awake and oriented x3 HENMT Head: normal to inspection Ears: hearing grossly normal bilaterally and TM's normal bilaterally Mouth: oral mucosae normal and moist mucous membranes Throat: posterior oropharynx normal Eyes Visual Gould: normal visual gould by confrontation Alignment and Position: alignment normal Periorbital: periorbital findings normal Eyelids: eyelids normal Sclera: sclerae normal Cornea: corneas normal Pupils: PERRL EOM: EOM intact bilaterally Neck Neck: normal visual inspection, full ROM, no lymphadenopathy and no meningeal signs Resp Effort & Inspection: normal respiratory effort and able to speak in complete sentences Auscultation: clear to auscultation bilaterally Cardio Rate: regular rate Rhythm: regular rhythm Heart Sounds: S1 normal and S2 normal Neuro General: patient alert, patient awake, patient oriented x3, gait normal, tone normal, moves all extremities, CN's II-XI intact bilaterally and not confused Cognition: normal cognition Speech: speech normal Motor: muscle tone normal throughout, strength 5/5 throughout, no pronator drift, no movement abnormalities noted and no fasciculations Sensory Exam: no sensory deficits noted Coordination: Romberg test normal, Does not sway with eyes open, rapid alternating movement UE normal and rapid alternating movement LE normal Course Vital Signs Vital signs: Vital Signs Temperature 36.7 C 11/11/21 17:21 Pulse 81 11/11/21 17:21 Respiratory Rate 18 11/11/21 17:21 Blood Pressure 131/86 11/11/21 17:21 Pulse Oximetry 97 11/11/21 17:21 Temperature 36.7 C 11/11/21 17:21 Temperature Source Skin 11/11/21 17:21 Pulse 81 11/11/21 17:21 Respiratory Rate 18 11/11/21 17:21 Respiratory Effort Non-Labored 11/11/21 18:12 Respiratory Depth Normal 11/11/21 18:12 Respiratory Pattern Normal 11/11/21 18:12 Blood Pressure 131/86 11/11/21 17:21 Blood Pressure Position Sitting 11/11/21 17:21 Pulse Oximetry 97 11/11/21 17:21 Oxygen Delivery Method Room Air 11/11/21 17:21 Oxygen Flow Rate 0 11/11/21 17:21 Pain Level 0 11/11/21 17:21 Lab/Test Results Lab/Test Results: Laboratory Tests Range/Units 11/11/21 11/11/21 11/11/21 17:40 17:50 17:50 WBC (4.4-10.8) 10^3/uL 6.69 RBC (3.93-5.22) 10^6/uL 4.31 Hgb (11.2-15.7) g/dL 12.5 Hct (36.0-46.0) % 39.2 MCV (80-95) fL 91 MCH (27.0-33.0) pg 29.0 MCHC (32.0-36.0) % 31.9 L RDW (11.7-14.6) % 14.3 Plt Count (130-400) 10^3/uL 301 MPV (8.0-11.0) fL 10.6 Immature Gran % 0.3 Neutrophils % 61.7 Lymphocytes % 29.4 Monocytes % 6.4 Eosinophils % 1.5 Basophils % 0.7 Nucleated RBC % (0.0-0.3) % 0.0 Absolute Neutrophils (1.2-6.7) 10^3/uL 4.12 Absolute Lymphocytes (1.2-3.4) 10^3/uL 1.97 Absolute Monocytes (0.1-0.8) 10^3/uL 0.43 Absolute Eosinophils (0.0-0.7) 10^3/uL 0.10 Absolute Basophils (0.0-0.2) 10^3/uL 0.05 Sodium (136-145) mmol/L 135 L Potassium (3.5-5.1) mmol/L 3.9 Chloride (98-107) mmol/L 98 Carbon Dioxide (21.0-32.0) mmol/L 28.5 Anion Gap (3-11) mmol/L 8.5 BUN (7-18) mg/dL 29 H Creatinine (0.55-1.02) mg/dL 1.0 Estimated GFR/1.73 m2 (mL/min/1.73m2) 56.00 Glucose (74-106) mg/dL 90 Calcium (8.5-10.1) mg/dL 9.3 Magnesium (1.8-2.4) mg/dL 2.2 Total Bilirubin (0.2-1.0) mg/dL 0.3 AST (15-37) U/L 26 ALT (14-59) U/L 32 Alkaline Phosphatase (46-116) U/L 123 H Troponin I (<or=60) ng/L < 50 Total Protein (6.4-8.2) g/dL 7.3 Albumin (3.4-5.0) g/dL 4.0 TSH (0.36-3.74) uIU/mL 3.21 Urine Color (Yellow) Yellow Urine Clarity (Clear) Clear Urine pH (5-8) 6.0 Ur Specific [place] (1.005-1.025) 1.015 Urine Protein (Negative) mg/dL Negative Urine Ketones (Negative) mg/dL Negative Urine Blood (Negative) Trace-intact H Urine Nitrite (Negative) Negative Urine Bilirubin (Negative) Negative Urine Urobilinogen (Up TO 0.2) EU/dL 0.2 Ur Leukocyte Esterase (Negative) Negative Urine RBC (0-2) HPF 0-2 Urine WBC (0-5) HPF 0-2 Ur Epithelial Cells (Negative) HPF Few Urine Crystals (Negative) HPF Negative Urine Bacteria (Negative) HPF Negative Urine Mucus (Negative) Negative Ur Culture Indicated? No Urine Glucose (Negative) mg/dL Negative
[2021-11-11 19:59] VITALS: BP 126/80; PULSE 70; RESP 18; TEMP 36.6; O2SAT 99
== END 2021-11-11 20:02 | disposition home or self-care (01) ==
PROVIDERS: Emergency Provider Nurse Practitioner Family
DX: R55 Syncope and collapse (principal); T50.995A Adverse effect of other drugs, medicaments and biological substances, initial encounter; R00.2 Palpitations
CPT/HCPCS: 80053; 93005; 96361; 96374; 99284; 81003; 81015; 83735; 84443; 84484; 85025; 93010; J1885

== ENCOUNTER 2021-11-20 03:31 | Outpatient (RCR) | payer MEDICAID, SELFPAY ==
--- NOTE | 2021-11-20 11:30 | HOLTER_ITS ---
APPROVED REPORT Conclusion This is a 48-hour Holter monitor ordered for syncope Predominant rhythm was sinus with an average heart rate of 74. Minimum was 62, maximum 106 There were rare isolated premature ventricular contractions There were no significant supraventricular dysrhythmias, no supraventricular tachycardia, no atrial f ibrillation There was no high-grade AV block, no pauses greater than 3 seconds No patient symptoms were reported
== END 2021-11-23 23:59 | disposition home or self-care (01) ==
LOC: RT 03:31
PROVIDERS: Visit Provider Nurse Practitioner Family
DX: R55 Syncope and collapse (principal)
CPT/HCPCS: 93225; 93226

== ENCOUNTER → 2021-12-25 04:19 | Outpatient (CLI) | payer MEDICAID, SELFPAY ==
--- NOTE | 2021-12-25 07:00 | DI.MAMMO_ITS ---
Exam(s) MAMMO SCREENING EXAM: MAMMO SCREENING CLINICAL HISTORY: screening, Z12.39. TECHNIQUE: Bilateral full field digital CC and MLO mammographic images were obtained with 3D tomosyn thesis and utilizing computer aided detection (CAD). COMPARISON: Prior mammograms were reviewed, the most recent being 2017. FINDINGS: There are no new spiculated masses nor malignant appearing microcalcification groups. There is no significant architectural distortion nor skin thickening-retraction. IMPRESSION: No radiographic evidence of malignancy. BI-RADS Category 1 - Negative Breast Density - Category B - Scattered areas of fibroglandular density Breast density Category C or D implies that the patient has dense breast tissue. Dense breast tissue can make it harder to find cancer on a mammogram. Dense breast tissue is also associated with an incr eased risk of breast cancer. This information about the result of the mammogram report was provided to the patient to raise their awareness. Use this report when you speak with the patient about their risks for breast cancer, which includes their family history. At that time, you may recommend additional screening tests (Ultrasoun d or MRI) as these tests may add significant information. A negative radiographic report should not delay biopsy if a dominant or clinically suspicious mass is present. Up to ten percent of cancers are not identified on mammography. A negative report may reinforce clinical impression. Adenosis and dense breasts may obscure an underlying neoplasm. False positive reports average 6 to 10%. Patient will receive a letter notifying them of these results.
== END ==
DX: Z12.31 Encounter for screening mammogram for malignant neoplasm of breast (principal)
CPT/HCPCS: 77063; 77067

== ENCOUNTER → 2022-03-03 02:38 | Outpatient (CLI) | payer MEDICAID, SELFPAY ==
--- NOTE | 2022-03-03 | DI.US_ITS ---
Exam(s) US RENAL EXAM: US RENAL CLINICAL HISTORY: H/O UROLITHIASIS,UTI, CALCULUS OF KIDNEY,N39.0,N20.0. TECHNIQUE: Zambrano scale, color and spectral Doppler were used. COMPARISON: CT RENAL COLIC WO CONTRAST from 01/11/2017 US US renal from 04/13/[address] ABDOMEN PELVIS WO/W from 08/19/2021 FINDINGS: Renal size in cm: Right: 10.5. Left: 10.6. Echogenicity: Normal. Hydronephrosis: No. Cyst or mass: No. Nephrolithiasis: There is an echogenic focus in upper to midpole of the right kidney measuring 0.6 cm which may represent a nonobstructing stone. Other findings: There is again seen an echogenic focus inferior and posterior to the urinary bladder. This corresponds to calcifications seen in the pelvis interposed between the urinary bladder and [facility]. This is unchanged. Bladder:Normal. Ureteral jets: Right: Visualized and unremarkable. Left: Visualized and unremarkable. Prevoid vol:144 cc Postvoid vol:7 cc Renal color flow: Symmetric and within normal limits. IMPRESSION: Right nephrolithiasis. No hydronephrosis. DATA REPOSITORY:
== END ==
PROVIDERS: PCP Nurse Practitioner Family; Visit Provider Nurse Practitioner
DX: N20.0 Calculus of kidney (principal); N39.0 Urinary tract infection, site not specified
CPT/HCPCS: 76770

== ENCOUNTER → 2023-01-07 01:49 | Outpatient (CLI) | payer MEDICAID, SELFPAY ==
--- NOTE | 2023-01-07 11:15 | DI.MAMMO_ITS ---
Exam(s) MAMMO SCREENING EXAM: MAMMO SCREENING CLINICAL HISTORY: screening,Z12.39 TECHNIQUE: Mammograms were interpreted according to the usual protocol including computer analysis w [employer] CAD system, tomosynthesis and C-view imaging. COMPARISON: 2013 through 2021 FINDINGS: The breasts are composed of mainly fatty density , Breast Density category A. Right breast: No suspicious masses or suspicious microcalcifications are seen. No skin thickening or abnormal axillary lymph nodes are seen. There has been no significant change from prior exams. Left breast: There is question of area of nodularity seen on the MLO view in the subareolar region. Spot compression views and ultrasound are recommended for further evaluation. No suspicious calcific ations. IMPRESSION: BI-RADS Category 0 - Assessment Incomplete: Need additional imaging evaluation Breast Density - Category A, fatty density. A negative radiographic report should not delay biopsy if a dominant or clinically suspicious mass is present. Up to ten percent of cancers are not identified on mammography. A negative report may reinforce clinical impression. Adenosis and dense breasts may obscure an underlying neoplasm. False positive reports average 6 to 10%. Patient will receive a letter notifying them of these results.
== END ==
PROVIDERS: PCP Nurse Practitioner Family; Visit Provider Nurse Practitioner Family
DX: Z12.31 Encounter for screening mammogram for malignant neoplasm of breast (principal); R92.8 Other abnormal and inconclusive findings on diagnostic imaging of breast
CPT/HCPCS: 77063; 77067

== ENCOUNTER → 2023-01-21 03:44 | Outpatient (CLI) | payer MEDICAID, SELFPAY ==
--- NOTE | 2023-01-21 | DI.US_ITS ---
Exam(s) MG MAMMO SCREEN CALL BACK UNI US BREAST LT COMPLETE EXAM: MG MAMMO SCREEN CALL BACK UNI LEFT AND COMPLETE LEFT BREAST ULTRASOUND CLINICAL HISTORY: F/U MAMMO, R92.8,? AREA OF NODULARITY ON MLO. TECHNIQUE: Unilateral spot mammographic images obtained with 3D tomosynthesisand utilizing computer aided detection (CAD). . Complete LEFT breast Ultrasound was also performed, including all 4 quadrants, the retroareolar regio n, and the ipsilateral axilla. COMPARISON: Prior mammograms were reviewed. This additional imaging was performed due to findings described on the recent screening mammogram of 01/07/2023. Patient denies feeling a lump and denies nipple discharge. FINDINGS: DIAGNOSTIC MAMMOGRAM: Additional mammographic views performed todayrender this area more similar to prior mammograms. COMPLETE BREAST ULTRASOUND: Ultrasound performed today reveals no evidence of solid or significant cystic lesions in all 4 quadra nts and the retroareolar region appears unremarkable. There are no dilated ducts. No ducts with ins pissated material nor obvious papilloma.. Scanning of the ipsilateral axilla reveals no significant adenopathy. IMPRESSION: 1. No radiographic evidence of malignancy. 2. Negative complete left breast ultrasound Appropriate follow-up as discussed by myself with the patient today is repeat left breast mammogram i n 6 months. The patient was informed of these findings and recommendations by myself prior to leaving the departm ent today. BI-RADS Category 3 - 6 month - Probably Benign Finding: Recommend follow-up mammography in 6 months Breast Density - Category B - Scattered areas of fibroglandular density Breast density Category C or D implies that the patient has dense breast tissue. Dense breast tissue can make it harder to find cancer on a mammogram. Dense breast tissue is also associated with an incr eased risk of breast cancer. This information about the result of the mammogram report was provided to the patient to raise their awareness. Use this report when you speak with the patient about their risks for breast cancer, which includes their family history. At that time, you may recommend additional screening tests (Ultrasoun d or MRI) as these tests may add significant information. A negative radiographic report should not delay biopsy if a dominant or clinically suspicious mass is present. Up to ten percent of cancers are not identified on mammography. A negative report may reinforce clinical impression. Adenosis and dense breasts may obscure an underlying neoplasm. False positive reports average 6 to 10%. Patient will receive a letter notifying them of these results.
== END ==
PROVIDERS: PCP Nurse Practitioner Family; Visit Provider Nurse Practitioner Family
DX: Z12.31 Encounter for screening mammogram for malignant neoplasm of breast (principal); R92.8 Other abnormal and inconclusive findings on diagnostic imaging of breast
CPT/HCPCS: 76642; 77063; 77067

== ENCOUNTER 2023-05-20 04:02 | Outpatient (CLI) | payer MEDICAID, SELFPAY ==
[2023-05-20 09:56] LABS: HCT 36.5 % (36.0-46.0); MCH 28.9 pg (27.0-33.0); MCHC 32.9 % (32.0-36.0); MCV 88 fL (80-95); Platelet Count 244 10^3/uL (130-400); RBC 4.15 10^6/uL (3.93-5.22); RDW 13.3 % (11.7-14.6); RDW-SD 43.3 fL; WBC 4.44 10^3/uL (4.4-10.8)
[2023-05-20 10:12] LABS: ALT 25 U/L (14-59); AST 23 U/L (15-37); Albumin 3.5 g/dL (3.4-5.0); Alkaline Phosphatase 81 U/L (46-116); Anion Gap 6.8 mmol/L (3-11); BUN 13 mg/dL (7-18); Bilirubin, Total 0.4 mg/dL (0.2-1.0); CO2 29.2 mmol/L (21.0-32.0); CREATININE 0.9 mg/dL (0.55-1.02); Calcium 8.9 mg/dL (8.5-10.1); Calculated LDL 83 mg/dL (<100); Chloride 101 mmol/L (98-107); Cholesterol 180 mg/dL (<200); Estimated GFR 71.39 (mL/min/1.73m2); Glucose 96 mg/dL (74-106); HDL Cholesterol 87 mg/dL (40-60); Potassium 4.2 mmol/L (3.5-5.1); Sodium 137 mmol/L (136-145); Total Protein 7.1 g/dL (6.4-8.2); Triglyceride 52 mg/dL (<150)
[2023-05-20 19:04] LABS: HIV-1/2 Ag & Ab Screen Negative (Negative)
[2023-05-20 19:54] LABS: Hepatitis C Ab w Rflx HCV PCR Negative (Negative)
== END 2023-05-20 04:03 | disposition home or self-care (01) ==
LOC: LBO 04:02
PROVIDERS: PCP Nurse Practitioner Family; Visit Provider Nurse Practitioner Family
DX: Z11.4 Encounter for screening for human immunodeficiency virus [HIV] (principal); E78.5 Hyperlipidemia, unspecified; R31.9 Hematuria, unspecified; Z11.59 Encounter for screening for other viral diseases
CPT/HCPCS: 36415; 80053; 80061; 85027; 86803; 87389

== ENCOUNTER → 2023-08-19 04:37 | Outpatient (CLI) | payer MEDICARE, MEDICAID, SELFPAY ==
--- NOTE | 2023-08-19 07:30 | DI.MAMMO_ITS ---
Exam(s) MAMMO DIAGNOSTIC UNI EXAM: MAMMO DIAGNOSTIC UNI-LEFT CLINICAL HISTORY: 6 month follow up,f/u lt breast findings,R92.8,Z09. TECHNIQUE: Unilateral breast cc and MLO mammographic images were obtained with 3D tomosynthesis tech [employer] and utilizing computer aided detection (CAD). COMPARISON: Prior mammograms were reviewed, the most recent being December 2022. Ultrasound perfor med at that time was also reviewed.. FINDINGS: The asymmetric density in the retroareolar region of the left breast remains unchanged/benign appeara nce. There are no new spiculated masses nor malignant-appearing microcalcification groups in the left [address]. No new architectural distortion or skin thickening-traction. Did not feel that it was necessary to repeat the ultrasound examination at this time IMPRESSION: Stable benign-appearing findings. No radiographic evidence of malignancy Appropriate follow-up is keep this patient on a yearly mammogram schedule, this plan there next bilat eral mammogram would be in 6 months. The patient was informed of the findings and follow-up recommendations by myself prior to leaving the department today. BI-RADS Category 2 - Benign Findings Breast Density - Category B - Scattered areas of fibroglandular density Breast density Category C or D implies that the patient has dense breast tissue. Dense breast tissue can make it harder to find cancer on a mammogram. Dense breast tissue is also associated with an incr eased risk of breast cancer. This information about the result of the mammogram report was provided to the patient to raise their awareness. Use this report when you speak with the patient about their risks for breast cancer, which includes their family history. At that time, you may recommend additional screening tests (Ultrasoun d or MRI) as these tests may add significant information. A negative radiographic report should not delay biopsy if a dominant or clinically suspicious mass is present. Up to ten percent of cancers are not identified on mammography. A negative report may reinforce clinical impression. Adenosis and dense breasts may obscure an underlying neoplasm. False positive reports average 6 to 10%. Patient will receive a letter notifying them of these results.
== END ==
PROVIDERS: PCP Nurse Practitioner Family; Visit Provider Nurse Practitioner Family
DX: Z09 Encounter for follow-up examination after completed treatment for conditions other than malignant neoplasm (principal)
CPT/HCPCS: 77061; 77065; G0279

== ENCOUNTER 2024-01-03 01:21 | Outpatient (CLI) | payer MEDICARE, SELFPAY ==
--- NOTE | 2024-01-03 08:15 | DI.MAMMO_ITS ---
Exam(s) MAMMO SCREENING EXAM: MAMMO SCREENING CLINICAL HISTORY: screening,z12.39 TECHNIQUE: Mammograms were interpreted according to the usual protocol including computer analysis w [employer] CAD system, tomosynthesis and C-view imaging. COMPARISON: 2013 through 19 August 2023 FINDINGS: The breasts are composed of mainly fatty density , Breast Density category A. No suspicious masses or suspicious microcalcifications are seen. No skin thickening or abnormal axillary lymph nodes are seen. There has been no significant change from prior exams. IMPRESSION: BI-RADS Category 1, Negative mammogram Yearly screening mammography is recommended. Breast Density - Category A, fatty density. A negative radiographic report should not delay biopsy if a dominant or clinically suspicious mass is present. Up to ten percent of cancers are not identified on mammography. A negative report may reinforce clinical impression. Adenosis and dense breasts may obscure an underlying neoplasm. False positive reports average 6 to 10%. Patient will receive a letter notifying them of these results.
== END 2024-01-03 01:41 ==
LOC: DI 01:21
PROVIDERS: PCP Nurse Practitioner Family; Visit Provider Nurse Practitioner Family
DX: Z12.31 Encounter for screening mammogram for malignant neoplasm of breast (principal); R92.8 Other abnormal and inconclusive findings on diagnostic imaging of breast
CPT/HCPCS: 77063; 77067

== ENCOUNTER 2024-11-24 10:30 | Outpatient (CLI) | payer MEDICARE, SELFPAY ==
[2024-11-24 13:01] LABS: ALT 27 U/L (14-59); AST 22 U/L (15-37); Albumin 3.9 g/dL (3.4-5.0); Alkaline Phosphatase 82 U/L (46-116); Anion Gap 7.7 mmol/L (3-11); BUN 19 mg/dL (7-18); Bilirubin, Total 0.4 mg/dL (0.2-1.0); CO2 30.3 mmol/L (21.0-32.0); Calcium 9.3 mg/dL (8.5-10.1); Calculated LDL 79 mg/dL (<100); Chloride 98 mmol/L (98-107); Cholesterol 176 mg/dL (<200); Estimated GFR 62.13 (mL/min/1.73m2); Glucose 94 mg/dL (74-106); HDL Cholesterol 79 mg/dL (>or=50); Potassium 4.3 mmol/L (3.5-5.1); Sodium 136 mmol/L (136-145); Total Protein 7.3 g/dL (6.4-8.2); Triglyceride 92 mg/dL (<150)
== END 2024-11-24 10:31 | disposition home or self-care (01) ==
PROVIDERS: PCP Nurse Practitioner Family; Visit Provider Nurse Practitioner Family
DX: E78.5 Hyperlipidemia, unspecified (principal)
CPT/HCPCS: 36415; 80053; 80061